=== PATIENT | female | born 1985 | race Caucasian/White ===

== ENCOUNTER → 2018-05-21 | Outpatient (CLI) | payer BC ==
--- NOTE | 2018-05-21 09:02 | RAD ---
AP and lateral views of each knee 05/21/2018 12:00 AM Indication: BILATERAL KNEE PAIN Comparison: None Findings: There is no acute fracture or dislocation. Articular surfaces are uninterrupted and smooth. Soft tissues are unremarkable. Impression: No evidence of acute osseous abnormality. Electronically signed by: Bebeto Abbott MD (05/21/2018 8:59 AM) [id number]
[2018-05-21 10:27] LABS: BASO % 1 % (0-3); EOS # 0.2 x10^3/uL (0.0-0.7); EOS % 3 % (0-3); HEMATOCRIT 37.2 % (36.0-47.0); HEMOGLOBIN 12.2 g/dL (12.0-15.5); LYMPH % 37 % (24-48); MEAN CORPUSCULAR HEMOGLOBIN 28 pg (25-35); MEAN CORPUSCULAR HGB CONC 33 g/dL (31-37); MEAN CORPUSCULAR VOLUME 85 fL (79-100); MONO # 0.5 x10^3/uL (0.0-1.1); MONO % 9 % (0-9); NEUT # 2.8 x10^3uL (1.8-7.7); NEUT % 51 % (31-73); PLATELET COUNT 284 x10^3/uL (140-400); RED BLOOD COUNT 4.39 x10^6/uL (3.50-5.40); RED CELL DISTRIBUTION WIDTH 16.1 % (11.5-14.5); WHITE BLOOD COUNT 5.5 x10^3/uL (4.0-11.0)
[2018-05-21 10:33] LABS: ALBUMIN 3.5 g/dL (3.4-5.0); C REACTIVE PROTEIN 1.5 mg/L (0-3.3); CALCIUM 9.1 mg/dL (8.5-10.1); CREATININE 0.7 mg/dL (0.6-1.0); GFR 97.6; TOTAL BILIRUBIN 0.2 mg/dL (0.2-1.0)
[2018-05-21 10:45] LABS: BACTERIA,URINE FEW /HPF (0-FEW); BILIRUBIN,URINE NEG (NEG); CLARITY,URINE HAZY; COLOR,URINE STRAW; GLUCOSE,URINE NEG (NEG); NITRITE,URINE NEG (NEG); RBC,URINE RARE /HPF (0-2); SQUAMOUS EPITHELIAL CELL,UR FEW /LPF; UROBILINOGEN,URINE 0.2 mg/dL (0.2 mg/dL); WBC,URINE RARE /HPF (0-4)
--- NOTE | 2018-05-21 11:14 | RAD ---
Indication:Abdominal cramping for 3 years. TECHNIQUE: Grayscale, color Doppler and spectral waveform is of the abdomen obtained. COMPARISON:None FINDINGS: Visualized pancreas is within normal limits. Pancreatic tail not visualized due to overlying bowel gas. No aortic aneurysm. IVC is within normal limits. No gallstones, pericholecystic fluid or gallbladder wall thickening. Main portal vein is patent with hepatopedal flow. CBD measures 4 mm in diameter and is within normal limits. Liver measures 16 cm in longest dimension and is normal in size and echogenicity. Right kidney measures 10 cm in length without hydronephrosis. Left kidney measures 11 cm in length without hydronephrosis. Spleen measures 11 cm in length and is normal in size. IMPRESSION: No acute findings. Electronically signed by: Kobe Chau DO (05/21/2018 11:11 AM) [facility]
--- NOTE | 2018-05-21 11:17 | RAD ---
Indication:Irregular periods. Abdominal cramping. TECHNIQUE: Grayscale, color Doppler and spectral waveform images of the pelvis obtained. COMPARISON: None FINDINGS: The uterus is anteverted and measures 10.2 x 4.0 x 5.4 cm (longitudinal, AP, transverse). Endometrial stripe measures 7 mm in thickness and is within normal limits. Left ovary measures 1.6 x 1.4 x 1.7 cm and shows blood flow. Right ovary measures 3.0 x 2.3 x 2.4 cm and shows blood flow. IMPRESSION: No acute findings. Electronically signed by: Kobe Chau DO (05/21/2018 11:14 AM) [facility]
[2018-05-21 13:55] LABS: FREE T4 0.97 ng/dL (0.76-1.46); THYROID STIM HORMONE (TSH) 4.91 uIU/mL (0.358-3.740)
== END | disposition home or self-care (01) ==
LOC: US 08:28
PROVIDERS: ATTEND Registered Nurse
DX: Z13.29 Encounter for screening for other suspected endocrine disorder (principal); Z13.6 Encounter for screening for cardiovascular disorders; N92.6 Irregular menstruation, unspecified; M25.561 Pain in right knee; M25.562 Pain in left knee; R10.9 Unspecified abdominal pain
CPT/HCPCS: 36415; 73560; 76700; 76830; 76856; 80053; 80061; 81001; 82150; 83690; 84439; 84443; 85025; 86140

== ENCOUNTER → 2018-06-22 | Outpatient (CLI) | payer BC ==
--- NOTE | 2018-06-22 17:21 | RAD ---
PA and lateral chest. HISTORY: Chest pain, dizzy spells, cough PA and lateral views were taken of the chest. There is thoracolumbar scoliosis. Lungs are free of infiltrates. Heart is normal in size. There is no pleural effusion. IMPRESSION: 1. Scoliosis. 2. No acute infiltrates. Electronically signed by: Presley Whiteside MD (06/22/2018 5:18 PM) [id number]
== END | disposition home or self-care (01) ==
LOC: PMG 11:20
PROVIDERS: ATTEND Registered Nurse
DX: R05 Cough (principal); M41.85 Other forms of scoliosis, thoracolumbar region
CPT/HCPCS: 71046

== ENCOUNTER → 2019-01-08 | Outpatient (CLI) | payer BC ==
--- NOTE | 2019-01-08 13:46 | RAD ---
EXAM: Lumbar spine, 3 views. HISTORY: Pain. COMPARISON: None. FINDINGS: 3 views of the lumbar spine are obtained. There is lumbar levoscoliosis centered at L1. There is no listhesis. The vertebral bodies are normal in height and the disc spaces are preserved. IMPRESSION: Levoscoliosis. Electronically signed by: Maggy Melendez MD (01/08/2019 1:43 PM) [facility]
--- NOTE | 2019-01-08 15:25 | RAD ---
EXAM: Bilateral feet, 3 views. HISTORY: Pain. COMPARISON: None. FINDINGS: 3 views of both feet are obtained. There is no fracture, dislocation or subluxation. The alignment and joint spaces are unremarkable. IMPRESSION: No acute osseous finding. Electronically signed by: Maggy Melendez MD (01/08/2019 3:22 PM) [facility]
== END | disposition home or self-care (01) ==
LOC: PMG 12:34
PROVIDERS: ATTEND Registered Nurse
DX: M41.86 Other forms of scoliosis, lumbar region (principal); M79.671 Pain in right foot; M79.672 Pain in left foot
CPT/HCPCS: 72100; 73630

== ENCOUNTER → 2019-01-08 | Outpatient (CLI) | payer BC ==
--- NOTE | 2019-01-08 12:21 | RAD ---
CHEST PA LATERAL Clinical indications: Cough. COMPARISON: December 16, 2011. Findings: No acute lung infiltrate or pleural effusion or pulmonary edema or lung mass or pneumothorax is seen. The heart size, pulmonary vasculature, mediastinum and both cedric are unremarkable. The osseous structures appear intact. Scoliosis is apparent. Impression: No acute radiographic abnormality is seen. Electronically signed by: Chong Chávez MD (01/08/2019 12:18 PM) [facility]
== END | disposition home or self-care (01) ==
LOC: PMG 11:42
PROVIDERS: ATTEND Registered Nurse
DX: M41.84 Other forms of scoliosis, thoracic region (principal); R05 Cough
CPT/HCPCS: 71046

== ENCOUNTER 2020-02-11 02:21 | Emergency (ER) | payer BC ==
[~2020-02-11] VITALS: Ht 170.2 cm; Wt 92.4 kg
[2020-02-11 02:39] VITALS: BP 121/79
--- NOTE | 2020-02-11 02:45 | PHYS DOC ---
Past History Past Medical History: Anxiety, Depression General Adult EDM: Chief Complaint: ALCOHOL INTOXICATION HPI: HPI: "..I had an argument with my and he's a ronald.. I only had a couple shots of [place] Apple...".." I am not suicidal..I not doing this for attention... ".." I just wanted to take a hot bath and get some sleep..." Pt. "..She been depressed the last couple days...I went to check on her and she was in the bath tub.. and I could not wake her up...She has been drinking too much.. all the family has been on her to stop drinking.... and there was a whole bottle of [place] gone..and just a few tablets of Sleep aid left..." . ) Patient is a 34 year old female who presents with above hx and complaints of mental status change.. Patient states she only had 2 shots [place], however entire bottle of raw crown is missing. Patient also had taken a number of tablets of Benadryl which she is reportedly has a severe allergy . Patient has had previous episodes of suicide attempts x2 with hospitalizations. Does have a history of seizure disorder, depression and anxiety. Pt. as teenage was self cutter for emotional release. Patient has had past history of borderline personality. Family has been arguing with her recently over her excessive alcohol use. Pt. does state she had thoughts of suicide in past, but has no recent thoughts of suicide or homicidal ideation. Pt. follows with Dr. Reinoso for primary care. Review of Systems: Review of Systems: Constitutional: Denies fever or chills Eyes: Denies change in visual acuity HENT: Denies nasal congestion or sore throat Respiratory: Denies cough or shortness of breath Cardiovascular: Denies chest pain or edema GI: Denies abdominal pain, nausea, vomiting, bloody stools or diarrhea : Denies dysuria Musculoskeletal: Denies back pain or joint pain Integument: Denies rash Neurologic: Denies headache, focal weakness or sensory changes Endocrine: Denies polyuria or polydipsia Lymphatic: Denies swollen glands Psychiatric: Complains of depression or anxiety Family History: Family History: Noncontributory to presentation Current Medications: Current Meds: See nursing for home meds Allergies: Allergies: Allergies Coded Allergies Type Severity Reaction Last Updated Verified Penicillins Allergy Unknown 02/11/20 Yes amoxicillin Allergy Unknown 02/11/20 Yes diphenhydramine Allergy Unknown 02/11/20 Yes Physical Exam: PE: Constitutional: no acute distress, intoxicated in appearance. [] HENT: Normocephalic, atraumatic, bilateral external ears normal, oropharynx moist, no oral exudates, nose normal. [] Eyes: PERRLA, EOMI, conjunctiva normal, no discharge. [] Neck: Normal range of motion, no tenderness, supple, no stridor. [] Cardiovascular:Heart rate regular rhythm, no murmur [] Lungs & Thorax: Bilateral breath sounds equal apex with few scattered wheezes on auscultation [] Abdomen: Bowel sounds normal, soft, no tenderness, no masses, no pulsatile masses. Obese Skin: Warm, dry, no erythema, no rash. [] Back: No tenderness, no CVA tenderness. Marked kyphosis and scoliosis Extremities: No tenderness, no cyanosis, no clubbing, ROM intact, no edema. Old self cutting scars on legs Neurologic: Alert and oriented X 3, patient moves all extremities on request, has distal sensory, no focal deficits noted. Patient is mildly discoordinated. Psychologic: Affect angry, j obviously intoxicated, mood normal. [] EKG: EKG: My interpretation EKG shows a sinus rhythm at 90 bpm. There is right axis changes. But no findings of acute STEMI of contralateral changes. [] Radiology/Procedures: Radiology/Procedures: My interpretation of x-ray shows marked scoliosis and kyphosis. Does have a left upper lobe nodule. [] Heart Score: HEART Score for Chest Pain: HEART Score for Chest Pain Response (Comments) Value History Slighlty/Non-Suspicious 0 ECG Nonspecific Repolarizatio 1 Age < 45 0 Risk Factors 1 or 2 Risk Factors 1 Troponin < Normal Limit 0 Total 2 Risk Factors: Risk Factors: DM, Current or recent (<one month) smoker, HTN, HLP, family history of CAD, obesity. Risk Scores: Score 0 - 3: 2.5% MACE over next 6 weeks - Discharge Home Score 4 - 6: 20.3% MACE over next 6 weeks - Admit for Clinical Observation Score 7 - 10: 72.7% MACE over next 6 weeks - Early Invasive Strategies Course & Med Decision Making: Course & Med Decision Making Pertinent Labs and Imaging studies reviewed. (See chart for details) Patient follow-up with counseling center. Patient reduce her alcohol intake. Patient consider inpatient alcohol abuse program. Patient stop smoking. Patient follow-up pulmonary nodule. Patient was discharged to the care of her . Pt. have primary review ED eval. Pt. to followup pulmonary nodule note on tonight exam. Impression: 1. Altered mental status 2. Alcohol intoxication alcohol 250 3. Tobacco 4. History of anxiety and depression 5. Borderline Personality 6. Pulmonary nodule [] Farzadon Disclaimer: Kimberlyn Disclaimer: This electronic medical record was generated, in whole or in part, using a voice recognition dictation system. Departure Departure: Referrals: FERNANDO REINOSO MD (PCP) Kimberlyn Disclaimer This chart was dictated in whole or in part using Voice Recognition software in a busy, high-work load, and often noisy Emergency Department environment. It may contain unintended and wholly unrecognized errors or omissions. YANELIS BONILLA MD Feb 11, 2020 02:45
[2020-02-11] MEDS: IV RINGERS SOLUTION,LACTATED 1,000 ML IV SCH (02:53)
[2020-02-11 03:17] LABS: BASO # 0.1 x10^3/uL (0.0-0.2); BASO % 2 % (0-3); EOS # 0.1 x10^3/uL (0.0-0.7); EOS % 1 % (0-3); HEMATOCRIT 39.4 % (36.0-47.0); HEMOGLOBIN 12.7 g/dL (12.0-15.5); LYMPH # 2.3 x10^3/uL (1.0-4.8); LYMPH % 30 % (24-48); MEAN CORPUSCULAR HEMOGLOBIN 28 pg (25-35); MEAN CORPUSCULAR HGB CONC 32 g/dL (31-37); MEAN CORPUSCULAR VOLUME 88 fL (79-100); MONO # 0.4 x10^3/uL (0.0-1.1); MONO % 5 % (0-9); NEUT % 63 % (31-73); PLATELET COUNT 317 x10^3/uL (140-400); RED BLOOD COUNT 4.46 x10^6/uL (3.50-5.40); RED CELL DISTRIBUTION WIDTH 14.8 % (11.5-14.5); WHITE BLOOD COUNT 7.9 x10^3/uL (4.0-11.0)
--- NOTE | 2020-02-11 03:22 | EKG ---
[address] [address] Test Date: 2020-02-11 Test Time: 03:07:07 Pat Name: VERNON CHILDS Department: Room: Gender: F Music Mixer: KRISTEN : 1985 Requested By: YANELIS BONILLA Order Number: [id number] Reading MD: Measurements Intervals [place] Rate: 90 P: 137 SD: 172 QRS: 159 QRSD: 84 T: 145 QT: 352 QTc: 435 Interpretive Statements SUPRAVENTRICULAR RHYTHM ABNORMAL RIGHT AXIS DEVIATION T ABNORMALITY IN HIGH LATERAL LEADS ABNORMAL ECG RI6.02 No previous ECG available for comparison
[2020-02-11 03:39] LABS: ANION GAP 11 (6-14); BLOOD UREA NITROGEN 6 mg/dL (7-20); CALCIUM 8.8 mg/dL (8.5-10.1); CARBON DIOXIDE 25 mmol/L (21-32); CHLORIDE 105 mmol/L (98-107); CREATININE 0.7 mg/dL (0.6-1.0); GFR 96.4; GLUCOSE 92 mg/dL (70-99); POTASSIUM 3.4 mmol/L (3.5-5.1); SODIUM 141 mmol/L (136-145)
[2020-02-11 03:40] LABS: ACETAMIN < 2.0 mcg/mL (10-30); ETHANOL 250 mg/dL (0-10); SALIC 2.9 mg/dL (2.8-20.0)
[2020-02-11 03:53] LABS: ALBUMIN 3.8 g/dL (3.4-5.0); ALK PHOS 101 U/L (46-116); ALT (SGPT) 22 U/L (14-59); AST (SGOT) 15 U/L (15-37); LIPASE 77 U/L (73-393); MAGNESIUM 2.1 mg/dL (1.8-2.4); TOTAL BILIRUBIN 0.1 mg/dL (0.2-1.0); TOTAL PROTEIN 7.8 g/dL (6.4-8.2)
[2020-02-11 03:57] LABS: BARBITURATES NEG (NEG); BENZODIAZEPINES NEG (NEG); CANNABINOIDS NEG (NEG); COCAINE NEG (NEG); METHADONE NEG (NEG); OPIATES NEG (NEG); PHENCYCLIDINE NEG (NEG)
[2020-02-11 03:59] LABS: AMPHETAMINE/METHAMPHETAMINE NEG (NEG)
[2020-02-11 03:59] LABS: DIRECT BILIRUBIN < 0.1 mg/dL (0.0-0.2)
[2020-02-11 04:02] LABS: BACTERIA,URINE 0 /HPF (0-FEW); BILIRUBIN,URINE NEG (NEG); CLARITY,URINE CLEAR; COLOR,URINE YELLOW; GLUCOSE,URINE NEG (NEG); NITRITE,URINE NEG (NEG); RBC,URINE 0 /HPF (0-2); SQUAMOUS EPITHELIAL CELL,UR MOD /LPF; UROBILINOGEN,URINE 0.2 mg/dL (0.2 mg/dL); WBC,URINE OCC /HPF (0-4)
--- NOTE | 2020-02-11 16:21 | RAD ---
XR CHEST 1V History: Reason: asthma / Spl. Instructions: Asthma / History: Comparison: January 08, 2019 Findings: No consolidation or pleural effusion. Normal heart size. No pneumothorax. Rightward curvature of the thoracic spine. Impression: 1. No acute cardiopulmonary process. Electronically signed by: Guillermo Snowden DO (02/11/2020 3:48 AM) [facility]
== END 2020-02-11 04:15 | disposition home or self-care (01) ==
LOC: ER 02:21
DX: F10.129 Alcohol abuse with intoxication, unspecified (principal); R45.851 Suicidal ideations; R41.82 Altered mental status, unspecified; F60.3 Borderline personality disorder; R91.1 Solitary pulmonary nodule; F41.9 Anxiety disorder, unspecified; F32.9 Major depressive disorder, single episode, unspecified; Y90.8 Blood alcohol level of 240 mg/100 ml or more
CPT/HCPCS: 36415; 71045; 80048; 80076; 80307; 80329; 81001; 81025; 82550; 83690; 83735; 83880; 84443; 84484; 85025; 85379; 85610; 85730; 93005; 96360; 99285; G0480; J7120

== ENCOUNTER → 2020-03-10 | Outpatient (CLI) | payer BC ==
[2020-02-11 02:39] VITALS: BP 121/79
--- NOTE | 2020-03-10 12:28 | RAD ---
EXAM: Chest, 2 views. HISTORY: Pulmonary nodules. COMPARISON: 02/11/2020 FINDINGS: 2 views of the chest are obtained. There is no infiltrate, pleural effusion or pneumothorax . The heart is normal in size. There is thoracic scoliosis. IMPRESSION: No acute pulmonary finding. Electronically signed by: Maggy Melendez MD (03/10/2020 12:25 PM) [id number]
== END ==
LOC: DXRAD 11:44
PROVIDERS: ATTEND Physician Assistant Medical
DX: R91.1 Solitary pulmonary nodule (principal); R07.89 Other chest pain; M41.84 Other forms of scoliosis, thoracic region
CPT/HCPCS: 71046

== ENCOUNTER 2020-05-26 20:08 | Emergency (ER) | payer BC ==
[~2020-05-26] VITALS: Ht 170.2 cm; Wt 92.4 kg
[2020-05-26 20:34] VITALS: BP 116/81
--- NOTE | 2020-05-26 20:56 | PHYS DOC ---
Past History Past Medical History: Anxiety, Depression Past Surgical History: No Surgical History Additional Past Surgical Histo: UNKNOWN Alcohol Use: Sober Adult General Chief Complaint Chief Complaint: DIZZY/LIGHT HEADED HPI HPI Patient is a 34yo female presenting for dizziness. She has history of anxiety and ETOH dependance. She admits drinking "a pint of [place] apple" and "a ton of beer" nightly for 4-5 years, she states she is 77 days sober. Reports waxing and waning dizziness without any falls. Changes in position and ambulating for long periods of time make worse. Rest makes better. She denies being in any pain. She has a PCP and has had limited workup in outpatient setting for this. Of note, she admits starting Keto diet ~3 weeks prior and has been eating <50g carbs daily Review of Systems Review of Systems Fourteen body systems of review of systems have been reviewed. See HPI for pertinent positives and negative responses, other kaiser all other systems are negative, non-pertinent or non-contributory Allergies Allergies Allergies Coded Allergies Type Severity Reaction Last Updated Verified Penicillins Allergy Unknown 02/11/20 Yes amoxicillin Allergy Unknown 02/11/20 Yes diphenhydramine Allergy Unknown 02/11/20 Yes Physical Exam Physical Exam Constitutional: Well developed, well nourished, no acute distress, non-toxic appearance. HENT: Normocephalic, atraumatic, bilateral external ears normal, oropharynx moist, no oral exudates, nose normal. Eyes: PERRLA, EOMI, conjunctiva normal, no discharge. Neck: Normal range of motion, no tenderness, supple, no stridor. Cardiovascular: Heart rate regular, sinus rhythm, no murmurs rubs or gallops Lungs & Thorax: Bilateral breath sounds clear to auscultation Abdomen: Bowel sounds normal, soft, no tenderness, no masses, no pulsatile masses. Nonsurgical abdomen, no peritoneal signs Skin: Warm, dry, no erythema, no rash. Back: No tenderness, no CVA tenderness. Extremities: No tenderness, no cyanosis, no clubbing, ROM intact, no edema. Neurologic: Alert and oriented X 3, CN 2-12 intact, downgoing toes bilaterally, LE reflexes 2+ and symmetric, normal motor & sensory function, no focal deficits noted. Negative Romberg, gait unremarkable Psychologic: Affect normal, judgement normal, anxious mood Current Patient Data Vital Signs Vital Signs Date Time Temp Pulse Resp B/P (MAP) Pulse Ox O2 Delivery O2 Flow Rate FiO2 05/26/20 20:34 97.8 105 20 116/81 (93) 98 Room Air Lab Results Laboratory Tests Test 05/26/20 20:29 POC Urine HCG, Qualitative hcg negative (Negative) EKG EKG EKG ordered and interpreted by myself at 2118 hrs. as sinus rhythm at 67 bpm, u nremarkable intervals, no axis deviation, no acute ischemic findings, no STEMI Radiology/Procedures Radiology/Procedures PROCEDURE: CT HEAD WO CONTRAST Exam: CT head INDICATION: Dizzy TECHNIQUE: Sequential axial images through the head were obtained without the administration of IV contrast. Comparisons: None FINDINGS: No focal parenchymal lesion or hemorrhage is identified. There is no midline shift or sulcal effacement. No acute vascular territory infarction is identified. Shelton-white distinction is preserved. The ventricular system is within normal limits without compression hydrocephalus. The basal cisterns are well maintained. The visualized portions of the paranasal sinuses and mastoid air cells are well- pneumatized. No acute fractures. IMPRESSION: No acute intracranial abnormality. Exposure: One or more of the following in the visualized dose reduction techniques were utilized for this examination: 1. Automated exposure control 2. Adjustment of the MA and/or KV according to patient size Use of iterative of reconstructive technique Electronically signed by: Mahin Cunningham MD (05/26/2020 9:11 PM) [facility] Heart Score C/O Chest Pain: No HEART Score for Chest Pain: HEART Score for Chest Pain Response (Comments) Value History Slighlty/Non-Suspicious 0 ECG Normal 0 Age < 45 0 Risk Factors 1 or 2 Risk Factors 1 Total 1 Risk Factors: Risk Factors: DM, Current or recent (<one month) smoker, HTN, HLP, family history of CAD, obesity. Risk Scores: Risk Factors: DM, Current or recent (<one month) smoker, HTN, HLP, family history of CAD, obesity. Course & Med Decision Making Course & Med Decision Making Hemodynamically stable patient. HPI and PE grossly non-concerning. ER workup found patient to be hypoglycemic. Discussed most likely diagnosis of hypoglycemic episodes given hx drinking and recent keto diet. I also question vitamin deficiency such as b12/folate given ETOH abuse but all testing today WNL. Patient ambulatory and ready for DC home. I discussed she needs to follow up with PCP in outpatient setting, that physical therapy and potentially MRI are needed, she is agreeable Strict return precautions discussed with good understanding, all questions and concerns addressed prior to departure Kimberlyn Disclaimer Kimberlyn Disclaimer This electronic medical record was generated, in whole or in part, using a voice recognition dictation system. Departure Departure: Impression: Primary Impression: Dizziness Additional Impressions: Hypoglycemia History of alcohol dependence Disposition: DC HOME SELF CARE/HOMELESS Condition: STABLE Referrals: DARLINE MCGUIRE (PCP) Patient Instructions: Dizziness Additional Instructions: As discussed prior to ER departure, please call your primary care physician first thing on Friday to follow-up on visit today As disclose, there is no remarkable findings on your physical exam or comprehensive ER diagnostic work-up that included blood and CT imaging of your head As discussed, since you started your new keto diet recently you could be experiencing hypoglycemic events that could be causing your dizziness In addition, you might be dealing with sequelae of alcohol dependence. There is no obvious vitamin deficiencies but as disclose, I would recommend you take a daily multivitamin that has folic acid, thiamine and vitamin B12 in it If any concerning signs or symptoms present prior to outpatient follow-up please do not hesitate to come back for repeat evaluation. It was a pleasure to take care of you and I wish you the best going forward Problem Qualifiers ISABEL HART DO May 26, 2020 20:56
--- NOTE | 2020-05-26 21:14 | RAD ---
Exam: CT head INDICATION: Dizzy TECHNIQUE: Sequential axial images through the head were obtained without the administration of IV co ntrast. Comparisons: None FINDINGS: No focal parenchymal lesion or hemorrhage is identified. There is no midline shift or sulcal effaceme nt. No acute vascular territory infarction is identified. Shelton-white distinction is preserved. The ventricular system is within normal limits without compression hydrocephalus. The basal cisterns are well maintained. The visualized portions of the paranasal sinuses and mastoid air cells are well-pneumatized. No acute fractures. IMPRESSION: No acute intracranial abnormality. Exposure: One or more of the following in the visualized dose reduction techniques were utilized for this examination: 1. Automated exposure control 2. Adjustment of the MA and/or KV according to patient size Use of iterative of reconstructive technique Electronically signed by: Mahin Cunningham MD (05/26/2020 9:11 PM) [facility]
--- NOTE | 2020-05-26 21:22 | EKG ---
[address] [address] Test Date: 2020-05-26 Test Time: 21:10:17 Pat Name: VERNON CHILDS Department: Room: Gender: F Cardiac/Vascular Sonographer: : 1985 Requested By: ISABEL HART Order Number: [id number] Reading MD: Measurements Intervals [place] Rate: 67 P: 34 SC: 172 QRS: 22 QRSD: 84 T: 27 QT: 412 QTc: 438 Interpretive Statements SINUS RHYTHM NORMAL ECG RI6.02 No previous ECG available for comparison
[2020-05-26 21:52] LABS: BASO % 0 % (0-3); EOS % 1 % (0-3); HEMATOCRIT 39.4 % (36.0-47.0); HEMOGLOBIN 12.7 g/dL (12.0-15.5); LYMPH # 1.8 x10^3/uL (1.0-4.8); LYMPH % 19 % (24-48); MEAN CORPUSCULAR HEMOGLOBIN 28 pg (25-35); MEAN CORPUSCULAR HGB CONC 32 g/dL (31-37); MEAN CORPUSCULAR VOLUME 86 fL (79-100); MONO # 0.5 x10^3/uL (0.0-1.1); MONO % 6 % (0-9); NEUT # 7.1 x10^3uL (1.8-7.7); NEUT % 74 % (31-73); PLATELET COUNT 284 x10^3/uL (140-400); RED BLOOD COUNT 4.58 x10^6/uL (3.50-5.40); RED CELL DISTRIBUTION WIDTH 15.5 % (11.5-14.5); WHITE BLOOD COUNT 9.5 x10^3/uL (4.0-11.0)
[2020-05-26 21:54] LABS: CALCIUM 9.1 mg/dL (8.5-10.1); CREATININE 0.8 mg/dL (0.6-1.0); GFR 82.6; POTASSIUM 3.8 mmol/L (3.5-5.1)
[2020-05-26 22:00] LABS: ALBUMIN/GLOBULIN RATIO 1.1 (1.0-1.7); TOTAL BILIRUBIN 0.2 mg/dL (0.2-1.0); TOTAL PROTEIN 7.7 g/dL (6.4-8.2)
== END 2020-05-26 22:46 | disposition home or self-care (01) ==
LOC: ER 20:08
DX: R42 Dizziness and giddiness (principal); E16.2 Hypoglycemia, unspecified; F10.21 Alcohol dependence, in remission; F41.9 Anxiety disorder, unspecified; F32.9 Major depressive disorder, single episode, unspecified; Z88.0 Allergy status to penicillin; Z88.1 Allergy status to other antibiotic agents; Z88.8 Allergy status to other drugs, medicaments and biological substances
CPT/HCPCS: 36415; 70450; 80053; 81025; 82607; 82746; 82947; 85025; 93005; 99285

== ENCOUNTER → 2021-04-18 | Outpatient (CLI) | payer BC ==
--- NOTE | 2021-04-18 10:28 | RAD ---
Scoliosis study-2 AP views of the thoracic and lumbar spine Clinical indications: Curvature of the spine. Scoliosis survey. FINDINGS: Dextroscoliosis of the thoracic spine is seen measuring 43 degrees using the Ayala method an d the superior endplate of T4 and the inferior endplate of T10. There is a levoscoliosis of the lumba r spine extending into the lower thoracic spine measuring 34 degrees and using the Ayala method and th e inferior endplate of T10 and inferior endplate of L3. 5 lumbar type vertebrae are evident. 12 ribs are seen bilaterally. No spina bifida or hemivertebrae are evident. No lytic process or discitis is s een. Metallic foreign body is projected over the lower abdomen which may represent umbilical jewelry. IMPRESSION: S-shaped scoliosis of the thoracic and lumbar spine as discussed above. Electronically signed by: Chong Chávez MD (04/18/2021 10:26 AM) [id number]
== END ==
LOC: RAD 09:45
PROVIDERS: ATTEND Physician Assistant
DX: M41.86 Other forms of scoliosis, lumbar region (principal); M41.84 Other forms of scoliosis, thoracic region; M54.50 Low back pain, unspecified
CPT/HCPCS: 72082